=== PATIENT | female | born 1985 | race Caucasian/White ===

== ENCOUNTER 2021-05-12 15:31 | Outpatient (CLI) | payer OTHER, SELFPAY ==
--- NOTE | ~2021-05-12 | MM_ITS ---
EXAMINATION: MM screening kurt BI w giovanni HISTORY: Screening TECHNIQUE: Craniocaudal and mediolateral oblique 3-D tomosynthesis images were obtained and synthetic 2-D images were generated. CAD analysis was submitted and interpreted. COMPARISON: No prior mammogram is available for comparison at this institution. BREAST PARENCHYMAL COMPOSITION: There are scattered areas of fibroglandular density. FINDINGS: There is no evidence of suspicious mass, calcification, or architectural distortion to sugg est malignancy in either breast. There has been no suspicious interval change. IMPRESSION: 1. No mammographic evidence of malignancy. 2. Recommend routine screening mammography in one year. BI-RADS Category 1: Negative Reviewed, dictated and finalized at location A. [employer]
== END 2021-05-12 15:32 | disposition home or self-care (01) ==
LOC: ANHIMG 15:33
PROVIDERS: PCP Family Medicine; Visit Provider Family Medicine
DX: Z12.31 Encounter for screening mammogram for malignant neoplasm of breast (principal)
CPT/HCPCS: 77063; 77067

== ENCOUNTER → 2022-09-16 15:52 | Outpatient (CLI) | payer OTHER, SELFPAY ==
--- NOTE | ~2022-09-16 | CT_ITS ---
Non-contrast CT scan of the Abdomen and Pelvis Clinical indication: Suprapubic pain Technique: 2.5 mm axial scans were obtained through the abdomen and pelvis without intravenous or or al contrast. Dose reduction technique was used on this scan by utilizing automated exposure control a nd iterative reconstruction technique. The dose-length product (DLP) was 550.22 mGy-cm. Findings: Images through the lung bases reveal no abnormalities. 5 mm nonobstructing left renal stone present. No right ureteral stone present. No ureteral stone or h ydronephrosis on either side. The liver, spleen, pancreas, gallbladder, and adrenals appear normal. There is no aortic aneurysm. There is no evidence of bowel obstruction. Images through the pelvis were performed. There is no evidence of ascites or lymphadenopathy. IUD in place. Left ovary is prominent, measuring 3.5 x 3.4 cm. Urinary bladder unremarkable. Impression: Prominent left ovary. Recommend pelvic ultrasound to assess for underlying ovarian lesion, which is m ost likely to be a cystic lesion given patient age. 5 mm nonobstructing left renal stone. Reviewed, dictated and finalized at [facility]. Impression: Prominent left ovary. Recommend pelvic ultrasound to assess for underlying ovar сергей lesion, which is most likely to be a cystic lesion given patient age. 5 mm nonobstructing left renal stone.
== END ==
PROVIDERS: PCP Family Medicine; Visit Provider Family Medicine
DX: R10.2 Pelvic and perineal pain (principal); N20.0 Calculus of kidney; Z97.5 Presence of (intrauterine) contraceptive device
CPT/HCPCS: 74176

== ENCOUNTER → 2022-09-24 14:24 | Outpatient (CLI) | payer OTHER, SELFPAY ==
--- NOTE | ~2022-09-24 | US_ITS ---
EXAMINATION: US pelvic complete DATE: 09/24/2022 14:43 INDICATION: ct 6..23: prominent L ovary, pelvic pain. TECHNIQUE: Multiple transabdominal sonographic images of the pelvis were obtained. COMPARISON: CT abdomen pelvis 09/16/2022. FINDINGS: Uterus: 8.1 x 4.2 x 5.0 cm. IUD, in good position. Endometrial complex measures 3 mm. Right Ovary: 3.1 x 1.9 x 2.2 cm. Vascular flow is present. No adnexal mass. Left Ovary: 5.3 x 2.3 x 3.4 cm. Vascular flow is present. 3.4 cm mildly lobulated hypoechoic ovarian lesion, with possible internal debris/nodularity, incompletely assessed and partially obscured by bow el gas. 1.8 cm simple ovarian cyst. There is no free fluid in the pelvis. IMPRESSION: 3.4 cm left ovarian lesion, likely cyst but incompletely visualized transabdominally. Recommend trans vaginal pelvic ultrasound for more complete characterization. Reviewed, dictated and finalized at location K. IMPRESSION: 3.4 cm left ovarian lesion, likely cyst but incompletely visualized transabdomi lila. Recommend transvaginal pelvic ultrasound for more complete characterizat ion.
== END ==
PROVIDERS: PCP Family Medicine; Visit Provider Family Medicine
DX: R93.5 Abnormal findings on diagnostic imaging of other abdominal regions, including retroperitoneum (principal); N83.202 Unspecified ovarian cyst, left side
CPT/HCPCS: 76856

== ENCOUNTER → 2022-10-01 15:46 | Outpatient (CLI) | payer OTHER, SELFPAY ==
--- NOTE | ~2022-10-01 | US_ITS ---
EXAMINATION: US transvaginal DATE: 10/01/2022 16:20 INDICATION: Unspecified ovarian cyst, left side. TECHNIQUE: Multiple transvaginal sonographic images of the pelvis were obtained. COMPARISON: ultrasound 09/24/22, CT 09/16/22 FINDINGS: The uterus measures 8.1 x 4.1 x 4.1 cm. There is no free fluid in the pelvis. The endometrial complex measures 7 mm in thickness. There is an intrauterine device in expected position. The right ovary me asures 3.2 x 1.3 x 1.6 cm. The left ovary measures 4.6 x 2.7 x 3.3 cm. There is normal vascular flow in the ovaries. IMPRESSION: 1. Normal ovaries. 2. Intrauterine device in expected position. Reviewed, dictated and finalized at location A.
== END ==
PROVIDERS: PCP Family Medicine; Visit Provider Family Medicine
DX: N83.202 Unspecified ovarian cyst, left side (principal); Z97.5 Presence of (intrauterine) contraceptive device
CPT/HCPCS: 76830

== ENCOUNTER 2024-09-25 09:40 | Outpatient (CLI) | payer OTHER, SELFPAY ==
--- NOTE | ~2024-09-25 | MM_ITS ---
EXAMINATION: MM screening kurt BI w giovanni HISTORY: Screening mammogram TECHNIQUE: Craniocaudal and mediolateral oblique 3-D tomosynthesis images were obtained and synthetic 2-D images were generated. CAD analysis was submitted and interpreted. COMPARISON: 05/12/2021 BREAST PARENCHYMAL COMPOSITION:Not Dense. There are scattered areas of fibroglandular density. FINDINGS: No suspicious mass, calcification, or architectural distortion are identified in either ariadna ast to suggest malignancy. There has been no suspicious interval change. IMPRESSION: No mammographic evidence of malignancy. Recommend routine screening mammography in one year. BI-RADS Category 1: Negative Reviewed, dictated and finalized at location .
== END 2024-09-25 09:41 | disposition home or self-care (01) ==
LOC: ANHIMG 09:41
PROVIDERS: PCP Family Medicine; Visit Provider Family Medicine
DX: Z12.31 Encounter for screening mammogram for malignant neoplasm of breast (principal)
CPT/HCPCS: 77063; 77067